=== PATIENT | male | born 1945 | race Caucasian/White ===

== ENCOUNTER 2019-01-10 10:28 | Emergency (ER) | payer MEDICARE, BC ==
[2019-01-10 11:11] VITALS: BP 152/93
--- NOTE | 2019-01-10 11:38 | UC ---
Back Pain HPI - HPI Summary HPI Summary: pt is c/o pain in his low back, describes as an ache x 2 weeks "from just living life". he denies hx of injury and over use. saw a chiropractor for same last year and had xrays, just wants a PT referral. love not like to take any medication. - History of Current Complaint Chief Complaint: UCBackPain Stated Complaint: PERSISTENT BACK PAIN Time Seen by Provider: 01/10/19 11:31 Hx Obtained From: Patient Pain Intensity: 4 Alleviating Factor(s): Other - improves with activity. Associated Signs And Symptoms: Positive: Other - no saddle anesthesia. Negative : Fever, Weakness, Numbness, Tingling, Abdominal Pain, Flank Pain, Bladder Incontinence, Bowel Incontinence - Risk Factors Cauda Equina Risk Factors: Negative Epidural Abscess Risk Factors: Negative - Allergies/Home Medications Allergies/Adverse Reactions: Allergies Allergy/AdvReac Type Severity Reaction Status Date / Time No Known Allergies Allergy Verified 01/10/19 11:04 Home Medications: Home Medications Glucosam/Chond-MSM 2/C/D3/Surinder [Mfatalwtob-Zumphpblugp-ROU Tab] 1 each PO DAILY 01/10/19 [History Confirmed 01/10/19] Magnesium Oxide [Magnesium] 200 mg PO DAILY 01/10/19 [History Confirmed 01/10/19 ] Melatonin 5 mg PO DAILY 01/10/19 [History Confirmed 01/10/19] Multivitamin [Multivitamins] 1 cap PO DAILY 01/10/19 [History Confirmed 01/10/19 ] PMH/Surg Hx/FS Hx/Imm Hx - Additional Past Medical History Additional PMH: [facility]/ History: Other - diverticulosis - Surgical History Surgical History: Yes Surgery Procedure, Year, and Place: right frontoparietal craniotomy with hematoma evacuation, [place], [facility] [place]roscopy, [facility] [place], [place]. sigmoid colectomy - Family History Known Family History: Positive: Non-Contributory - Social History Alcohol Use: Daily Alcohol Amount: wine Substance Use Type: None Smoking Status (MU): Former Smoker Type: Cigarettes Amount Used/How Often: 1/2 PACK A DAY Have You Smoked in the Last Year: No When Did the Patient Quit Smoking/Using Tobacco: 1966 - Immunization History Most Recent Influenza Vaccination: 03/2014 Most Recent Tetanus Shot: UNKNOWN Most Recent Pneumonia Vaccination: NEVER Review of Systems All Other Systems Reviewed And Are Negative: No Constitutional: Negative: Fever, Chills Respiratory: Negative: Shortness Of Breath, Cough Cardiovascular: Negative: Palpitations, Chest Pain Gastrointestinal: Negative: Abdominal Pain Musculoskeletal: Negative: Decreased ROM Neurological: Negative: Weakness, Paresthesia, Numbness Physical Exam Triage Information Reviewed: Yes Appearance: Well-Appearing Vital Signs: Initial Vital Signs Temp 98.2 F 01/10/19 11:06 Pulse 74 01/10/19 11:06 Resp 17 01/10/19 11:06 BP 152/93 01/10/19 11:06 Pulse Ox 98 01/10/19 11:06 Vital Signs Reviewed: Yes Eyes: Positive: Conjunctiva Clear ENT: Positive: Normal ENT inspection Neck: Positive: Supple, Nontender, No Lymphadenopathy, Other: - c-spine non tender Respiratory: Positive: Lungs clear, Normal breath sounds, No respiratory distress Cardiovascular: Positive: RRR, No Murmur Abdomen Description: Positive: Nontender, No Organomegaly, Soft Bowel Sounds: Positive: Present Musculoskeletal: Positive: Other: - Back: no rash, deformity. spine is non tender. ROM intact throughout. 5/5 strength, 2+ reflexes and sensation intact x4. negative styraight leg raises and no saddle aneshtesia. steady gait. Neurological: Positive: Alert Psychological: Positive: Age Appropriate Behavior Skin Exam: Normal Skin: Negative: Rashes Diagnostics - Laboratory Lab Results: 04/06/18, LUMBAR SPINE XRAY REPORT=OSTEOPENIA. MILD DDD AND OA. Back Pain Course/Dx - Differential Dx/Diagnosis Differential Diagnosis/HQI/PQRI: Other - no concern for infection, acute abdomen or cauda equina. 03/27 lumbar spine xray reviewed. pt declined nsaid and mm relaxor thus will refer to PT. Provider Diagnosis: Low back pain Discharge ED - Sign-Out/Discharge Documenting (check all that apply): Patient Departure All imaging exams completed and their final reports reviewed: No Studies - Discharge Plan Condition: Stable Disposition: HOME Patient Education Materials: Acute Low Back Pain (ED) Referrals: Vinicius Alvarado DO [Primary Care Provider] - 7 Days Additional Instructions: PT FOLLOW UP ORDER PROVIDED - Billing Disposition and Condition Condition: STABLE Disposition: Home
== END 2019-01-10 11:50 | disposition home or self-care (01) ==
LOC: UCCORT 10:28
DX: M54.5 Low back pain (principal); Z87.891 Personal history of nicotine dependence
CPT/HCPCS: 99211; G0463